=== PATIENT | male | born 1945 | race Caucasian/White ===

== ENCOUNTER → 2018-11-30 | Outpatient (CLI) | payer MEDICARE, BC ==
[~2018-11-30] MED LIST: COLESTID 1GM1 G; LOPRESSOR 550 MG/TAB PO; NIACIN500 MG PO; PRILOSEC 20MG20 MG PO
== END ==
LOC: COL.RAD 10:19
DX: F03.90 Unspecified dementia, unspecified severity, without behavioral disturbance, psychotic disturbance, mood disturbance, and anxiety (principal); Z95.0 Presence of cardiac pacemaker; Z53.8 Procedure and treatment not carried out for other reasons

== ENCOUNTER → 2018-12-13 | Outpatient (CLI) | payer MEDICARE, BC | LOC: COL.RAD 12:17 | DX: Z01.812 Encounter for preprocedural laboratory examination (principal); I67.82 Cerebral ischemia; F03.90 Unspecified dementia, unspecified severity, without behavioral disturbance, psychotic disturbance, mood disturbance, and anxiety ==

== ENCOUNTER → 2020-03-27 | Outpatient (CLI) | payer MEDICARE, BC ==
[2020-03-27 13:04] LABS: BASO # 0.1 (0.0-0.2); BASO % 1.6 % (0.0-2.0); EOS # 0.1 (0.0-0.7); EOS % 2.6 % (0-4.0); GRAN # 2.7 (1.4-6.5); GRAN % 62.1 % (42.2-75.2); HEMATOCRIT 51.9 % (42.0-52.0); HEMOGLOBIN 16.8 g/dl (13.5-18.0); LYMPH # 0.9 (1.2-3.4); LYMPH % 21.6 % (20.0-51.0); MEAN CELL VOLUME 90 fl (80.0-100.0); MEAN CORPUSCULAR HEMOGLOBIN 29 pg (27.0-31.0); MEAN CORPUSCULAR HGB CONC 32 g/dl (33.0-37.0); MEAN PLATELET VOLUME 11.3 fl (7.4-10.4); MONO # 0.5 (0.1-0.6); MONO % 11.9 % (1.7-9.3); PLATELET COUNT 256 K/mm3 (130-400); RED BLOOD COUNT 5.75 M/mm3 (4.20-5.60); REDCELL DISTRIBUTION WIDTH-CV 15.4 % (11.5-14.5)
[2020-03-27 13:11] LABS: ALBUMIN 3.9 gm/dL (3.5-5.0); CREATININE, serum 1.55 (0.66-1.25); POTASSIUM 4.4 mmol/L (3.4-5.0); TOTAL PROTEIN 6.9 gm/dL (6.4-8.2)
[2020-03-27 13:41] LABS: THYROID STIMULATING HORMONE 60.2 uIU/mL (0.465-4.680)
== END ==
LOC: ZLAB.STJ 12:14
PROVIDERS: Family Medicine
DX: I10 Essential (primary) hypertension (principal); R73.09 Other abnormal glucose; E03.9 Hypothyroidism, unspecified

== ENCOUNTER → 2020-05-24 | Outpatient (CLI) | payer MEDICARE, BC | LOC: ZLAB.STJ 11:43 | DX: E03.9 Hypothyroidism, unspecified (principal) ==

== ENCOUNTER → 2022-08-17 | Outpatient (REF) | payer MEDICARE, BC ==
[2022-08-17 19:31] LABS: CREATININE, serum 1.73 mg/dL (0.72-1.25); POTASSIUM 4.7 mmol/L (3.5-4.5); VALPROIC ACID (DEPAKENE) 50.9 ug/mL (43.5-90.5)
== END ==
LOC: ZCOL.LAB 17:24
PROVIDERS: Internal Medicine
DX: N18.32 Chronic kidney disease, stage 3b (principal); F03.90 Unspecified dementia, unspecified severity, without behavioral disturbance, psychotic disturbance, mood disturbance, and anxiety

== ENCOUNTER → 2022-08-26 | Outpatient (REF) | payer MEDICARE, BC ==
[2022-08-26 13:30] LABS: CALCIUM 9.7 mg/dL (8.4-10.2); CREATININE, serum 1.96 mg/dL (0.72-1.25); POTASSIUM 4.5 mmol/L (3.5-4.5)
== END ==
LOC: ZCOL.LAB 12:45
PROVIDERS: Internal Medicine
DX: I50.9 Heart failure, unspecified (principal)

== ENCOUNTER → 2022-09-09 | Outpatient (REF) | payer MEDICARE, BC ==
[~2022-09-09] MED LIST changes: +AMOXICILLIN 50500 MG PO; +ANTI-DIARRHEAL2 MG PO; +ARICEPT10 MG PO; +ASPIRIN 32325 MG/TAB PO; +BUMEX 1MG TA1 MG/TA1 PO; +BUMEX2 MG PO; +COLACE 100100 MG/CAP PO; +COREG12.5 MG PO; +DEPAKOTE 125MG125 M1 PO; +DULCOLAX S10 MG/SUPP RC; +GLUCOSAMINE & C1 TAB PO; +K-DUR 10 MEQ T10 MEQ PO; +LIPITOR20 MG PO; +NITROSTAT0.4 MG/TAB SL; +PACERONE200 MG PO; +SYNTHROID0.1 MG/TAB PO; +TYLENOL SU650 MG/SUP RC
[2022-09-09 16:33] LABS: CALCIUM 9.4 mg/dL (8.4-10.2); CREATININE, serum 1.73 mg/dL (0.72-1.25); MAGNESIUM 2.5 mg/dL (1.6-2.6); POTASSIUM 4.4 mmol/L (3.5-4.5)
== END ==
LOC: ZCOL.LAB 16:14
DX: I50.9 Heart failure, unspecified (principal); N18.32 Chronic kidney disease, stage 3b

== ENCOUNTER 2022-09-11 14:14 | Emergency (ER) | payer MEDICARE, BC ==
[~2022-09-11] VITALS: Ht 185.4 cm; Wt 68.2 kg
[~2022-09-11 14:14] MED LIST changes: -AMOXICILLIN 50500 MG PO; -ANTI-DIARRHEAL2 MG PO; -ARICEPT10 MG PO; -ASPIRIN 32325 MG/TAB PO; -BUMEX 1MG TA1 MG/TA1 PO; -BUMEX2 MG PO; -COLACE 100100 MG/CAP PO; -COREG12.5 MG PO; -DEPAKOTE 125MG125 M1 PO; -DULCOLAX S10 MG/SUPP RC; -GLUCOSAMINE & C1 TAB PO; -K-DUR 10 MEQ T10 MEQ PO; -LIPITOR20 MG PO; -NITROSTAT0.4 MG/TAB SL; -PACERONE200 MG PO; -SYNTHROID0.1 MG/TAB PO; -TYLENOL SU650 MG/SUP RC
[2022-09-11 14:30] VITALS: TEMP 97.6
[2022-09-11 15:43] LABS: BASO # 0.1 K/mm3 (0.0-0.2); BASO % 1.8 % (0.0-2.0); EOS # 0.1 K/mm3 (0.0-0.7); EOS % 1.8 % (0.0-4.0); GRAN # 4.1 K/mm3 (1.4-6.5); GRAN % 66.6 % (42.2-75.2); HEMATOCRIT 50.8 % (42.0-52.0); HEMOGLOBIN 16.7 g/dl (13.5-18.0); LYMPH # 1.1 K/mm3 (1.2-3.4); LYMPH % 18.2 % (20.0-51.0); MEAN CELL VOLUME 88 fl (80.0-100.0); MEAN CORPUSCULAR HEMOGLOBIN 29 pg (27-31); MEAN CORPUSCULAR HGB CONC 33 g/dl (33.0-37.0); MEAN PLATELET VOLUME 9.8 fl (7.4-10.4); MONO # 0.7 K/mm3 (0.1-0.6); PLATELET COUNT 369 K/mm3 (130-400); RED BLOOD COUNT 5.75 M/mm3 (4.20-5.60); REDCELL DISTRIBUTION WIDTH-CV 21.1 % (11.5-14.5)
[2022-09-11 16:01] LABS: ALBUMIN 3.4 gm/dL (3.4-4.8); BILIRUBIN,TOTAL 2.2 mg/dL (0.2-1.2); CALCIUM 9.4 mg/dL (8.4-10.2); CREATININE, serum 1.85 mg/dL (0.72-1.25); POTASSIUM 4.4 mmol/L (3.5-4.5); TOTAL PROTEIN 7.2 gm/dL (6.2-8.1)
[2022-09-11 16:06] LABS: TROPONIN-I 0.016 ng/mL (0.00-0.033)
[2022-09-11] MEDS ORDERED: COREG12.5 MG PO (16:11)
[2022-09-11] MEDS ORDERED: PACERONE200 MG PO (16:11)
[2022-09-11] MEDS ORDERED: TYLENOL SU650 MG/SUP RC (16:18)
[2022-09-11] MEDS ORDERED: AMOXICILLIN 50500 MG PO (16:19)
[2022-09-11] MEDS ORDERED: ASPIRIN 32325 MG/TAB PO (16:21)
[2022-09-11] MEDS ORDERED: BUMEX 1MG TA1 MG/TA1 PO (16:22)
[2022-09-11] MEDS ORDERED: DULCOLAX S10 MG/SUPP RC (16:22)
[2022-09-11] MEDS ORDERED: LIPITOR20 MG PO (16:22)
[2022-09-11] MEDS ORDERED: BUMEX2 MG PO (16:23)
[2022-09-11] MEDS ORDERED: COLACE 100100 MG/CAP PO (16:23)
[2022-09-11] MEDS ORDERED: DEPAKOTE 125MG125 M1 PO (16:23)
[2022-09-11] MEDS ORDERED: ARICEPT10 MG PO (16:24)
[2022-09-11] MEDS ORDERED: GLUCOSAMINE & C1 TAB PO (16:25)
[2022-09-11] MEDS ORDERED: ANTI-DIARRHEAL2 MG PO (16:26)
[2022-09-11] MEDS ORDERED: SYNTHROID0.1 MG/TAB PO (16:26)
[2022-09-11] MEDS ORDERED: NITROSTAT0.4 MG/TAB SL (16:27)
[2022-09-11] MEDS ORDERED: K-DUR 10 MEQ T10 MEQ PO (16:28)
[2022-09-11 16:39] VITALS: BP 103/64; PULSE 76
== END 2022-09-11 16:40 | disposition home or self-care (01) ==
LOC: COL.ER 14:14
PROVIDERS: Nurse Practitioner Primary Care
DX: I25.10 Atherosclerotic heart disease of native coronary artery without angina pectoris (principal); I48.91 Unspecified atrial fibrillation; I11.0 Hypertensive heart disease with heart failure; I50.9 Heart failure, unspecified; I25.2 Old myocardial infarction; Z95.0 Presence of cardiac pacemaker; Z95.1 Presence of aortocoronary bypass graft; Z95.2 Presence of prosthetic heart valve; Z87.891 Personal history of nicotine dependence

== ENCOUNTER → 2022-09-15 | Outpatient (REF) | payer MEDICARE, BC ==
[~2022-09-15] MED LIST changes: +AMOXICILLIN 50500 MG PO; +ANTI-DIARRHEAL2 MG PO; +ARICEPT10 MG PO; +ASPIRIN 32325 MG/TAB PO; +BUMEX 1MG TA1 MG/TA1 PO; +BUMEX2 MG PO; +COLACE 100100 MG/CAP PO; +COREG12.5 MG PO; +DEPAKOTE 125MG125 M1 PO; +DULCOLAX S10 MG/SUPP RC; +GLUCOSAMINE & C1 TAB PO; +K-DUR 10 MEQ T10 MEQ PO; +LIPITOR20 MG PO; +NITROSTAT0.4 MG/TAB SL; +PACERONE200 MG PO; +SYNTHROID0.1 MG/TAB PO; +TYLENOL SU650 MG/SUP RC
[2022-09-15 17:15] LABS: BASO # 0.1 K/mm3 (0.0-0.2); BASO % 1.2 % (0.0-2.0); EOS # 0.1 K/mm3 (0.0-0.7); EOS % 0.6 % (0.0-4.0); GRAN # 5.9 K/mm3 (1.4-6.5); GRAN % 71.3 % (42.2-75.2); HEMATOCRIT 55.8 % (42.0-52.0); HEMOGLOBIN 17.9 g/dl (13.5-18.0); LYMPH # 1.4 K/mm3 (1.2-3.4); LYMPH % 17.1 % (20.0-51.0); MEAN CELL VOLUME 90 fl (80.0-100.0); MEAN CORPUSCULAR HEMOGLOBIN 29 pg (27-31); MEAN CORPUSCULAR HGB CONC 32 g/dl (33.0-37.0); MEAN PLATELET VOLUME 10.4 fl (7.4-10.4); MONO # 0.7 K/mm3 (0.1-0.6); PLATELET COUNT 401 K/mm3 (130-400); RED BLOOD COUNT 6.23 M/mm3 (4.20-5.60); REDCELL DISTRIBUTION WIDTH-CV 21.5 % (11.5-14.5)
[2022-09-15 17:23] LABS: CALCIUM 9.6 mg/dL (8.4-10.2); CREATININE, serum 1.84 mg/dL (0.72-1.25); MAGNESIUM 2.6 mg/dL (1.6-2.6); POTASSIUM 4.5 mmol/L (3.5-4.5)
[2022-09-15 17:29] LABS: TROPONIN-I 0.019 ng/mL (0.00-0.033)
== END ==
LOC: ZCOL.LAB 16:55
PROVIDERS: Internal Medicine
DX: I48.91 Unspecified atrial fibrillation (principal); I50.9 Heart failure, unspecified

== ENCOUNTER → 2022-09-30 | Outpatient (REF) | payer MEDICARE, BC ==
[2022-09-30 12:35] LABS: ALBUMIN 3.4 gm/dL (3.4-4.8); BILIRUBIN,TOTAL 1.7 mg/dL (0.2-1.2); CHOLESTEROL RISK RATIO 3.3; CREATININE, serum 2.03 mg/dL (0.72-1.25); POTASSIUM 4.4 mmol/L (3.5-4.5); THYROID STIMULATING HORMONE 7.186 uIU/mL (0.350-4.940); TOTAL PROTEIN 6.5 gm/dL (6.2-8.1)
[2022-09-30 12:45] LABS: BASO # 0.1 K/mm3 (0.0-0.2); BASO % 1.5 % (0.0-2.0); EOS # 0.1 K/mm3 (0.0-0.7); EOS % 1.1 % (0.0-4.0); GRAN # 4.4 K/mm3 (1.4-6.5); GRAN % 67.7 % (42.2-75.2); HEMATOCRIT 50.8 % (42.0-52.0); HEMOGLOBIN 17.4 g/dl (13.5-18.0); LYMPH # 1.2 K/mm3 (1.2-3.4); LYMPH % 18.4 % (20.0-51.0); MEAN CELL VOLUME 87 fl (80.0-100.0); MEAN CORPUSCULAR HEMOGLOBIN 30 pg (27-31); MEAN CORPUSCULAR HGB CONC 34 g/dl (33.0-37.0); MEAN PLATELET VOLUME 10.2 fl (7.4-10.4); MONO # 0.7 K/mm3 (0.1-0.6); MONO % 10.4 % (1.7-9.3); PLATELET COUNT 366 K/mm3 (130-400); RED BLOOD COUNT 5.85 M/mm3 (4.20-5.60); REDCELL DISTRIBUTION WIDTH-CV 21.2 % (11.5-14.5)
[2022-09-30 12:55] LABS: VALPROIC ACID (DEPAKENE) 27.5 ug/mL (43.5-90.5)
== END ==
LOC: ZCOL.LAB 12:01
PROVIDERS: Internal Medicine
DX: I11.0 Hypertensive heart disease with heart failure (principal); I50.9 Heart failure, unspecified; E03.9 Hypothyroidism, unspecified

== ENCOUNTER → 2022-10-12 | Outpatient (REF) | payer MEDICARE, BC ==
[~2022-10-12] MED LIST changes: +ALDACTONE 25MG25 M1 PO; +COMPLETE MULTI1 TAB PO; +IMDUR 30MG30 MG/TAB PO; +MILK OF MA400 MG/52 PO; +MYLANTA MAXIMU355 M1 PO; +NITRO-DUR0.1 MG/PAT TD; +TYLENOL 325MG325 MG PO; +VITAMIND3 5000 PO
[2022-10-12 14:53] LABS: ALBUMIN 3.7 gm/dL (3.4-4.8); BILIRUBIN,TOTAL 2.1 mg/dL (0.2-1.2); THYROID STIMULATING HORMONE 7.604 uIU/mL (0.350-4.940)
[2022-10-12 15:14] LABS: BILIRUBIN,DIRECT 1.1 mg/dL (0.0-0.5)
== END ==
LOC: ZCOL.LAB 14:04
PROVIDERS: Internal Medicine
DX: E03.9 Hypothyroidism, unspecified (principal); E80.6 Other disorders of bilirubin metabolism